=== PATIENT | female | born 1945 | race Caucasian/White ===

== ENCOUNTER 2017-10-16 13:20 | Emergency (ER) | payer MEDICARE ==
--- NOTE | 2017-10-16 14:51 | ED PDOC ---
Arrival/HPI - General Time Seen by Provider: 10/16/17 13:24 Historian: Patient, Family (son) - History of Present Illness Narrative History of Present Illness (Text): 10/16/17 14:42 A 72 year old female, whose past medical history includes hemorroids, prolapsed bladder (mesh placed August 2011, evaluated every year), presents to the emergency department complaining of difficulty urinating since 11:00 today. Only urinating a little at a time and feels pain that is radiating to the R flank. She notes also experiencing constipation (which patient believes may be caused by her hemorrhoids but is uncertain). Also with nausea. Patient denies any vomiting, diarrhea, or any other complaints at this time. Also, patient mentions she takes no pain medications. Past Medical History - Provider Review Nursing Documentation Reviewed: Yes Family/Social History - Physician Review Nursing Documentation Reviewed: Yes Family/Social History: No Known Family HX Allergies/Home Meds Allergies/Adverse Reactions: Allergies Penicillins Allergy (Verified 10/16/17 14:59) RASH polyethylene glycol 3350 [From Miralax] Allergy (Verified 10/16/17 14:59) RASH Home Medications: Home Meds Medication Instructions Recorded Confirmed Diltiazem HCl [Cartia Xt] 180 mg PO DAILY 10/16/17 10/16/17 Review of Systems - Physician Review All systems were reviewed & negative as marked: Yes - Review of Systems Gastrointestinal: Constipation, Nausea. absent: Diarrhea, Vomiting Genitourinary Female: Urine Output Changes (difficulty urinating) Musculoskeletal: Back Pain (right-side back pain) Physical Exam - Physical Exam Narrative Physical Exam (Text): Constitutional: No acute distress. Head: Normocephalic. Atraumatic. Eyes: PERRL. ENT: Moist mucous membranes. Neck: Supple. Cardiovascular: Regular rate. Chest: No tenderness. Respiratory: Clear to auscultation bilaterally. GI: Soft. Nontender. Distended. Back: No CVA tenderness. Musculoskeletal: No tenderness or swelling of extremities. Skin: No rash. Neurologic: Alert, no focal deficit. Rectal: Multiple hemorrhoids. No active bleeding. Nonthrombosed. Vital Signs Reviewed: Yes Vital Signs Temp Pulse Resp BP Pulse Ox 10/16/17 14:40 98.8 F 56 L 18 98 10/16/17 14:32 100.3 F H 96 H 18 123/66 95 Temperature: Afebrile Blood Pressure: Normal Pulse: Regular Respiratory Rate: Normal Appearance: Positive for: Well-Appearing, Non-Toxic, Comfortable Pain Distress: None Mental Status: Positive for: Alert and Oriented X 3 Medical Decision Making ED Course and Treatment: 10/16/17 14:46 Impression: 72 year old female with difficulty urinating and flank pain. Plan: -- Abd/Pelvis CT -- Labs -- Urine Culture -- Urinalysis -- Reassess and disposition Progress Notes: CT abdomen/pelvis IMPRESSION: Underdistended bladder with irregular wall thickening which may be related to underdistention. Bilateral ureteral enhancement which may be related to bilateral ascending urinary tract infections. Correlate clinically. Additional findings as above. Patient wishes to go home. First dose antibiotic given here, continue at home, instructed to return to Emergency department for worsening pain, fever, dyspnea , vomiting. - Lab Interpretations Lab Results: 10/16/17 15:47 10/16/17 15:47 Lab Results 10/16/17 16:48: Blood Type Pending, Antibody Screen Pending, BBK History Checked No verified bt 10/16/17 15:47: Urine Color Yellow, Urine Appearance Slight-cloudy, Urine pH 7.0 , Ur Specific [place] <= 1.005, Urine Protein 100 H, Urine Glucose (UA) Negative , Urine Ketones Negative, Urine Blood Large H, Urine Nitrate Positive H, Urine Bilirubin Negative, Urine Urobilinogen 0.2, Ur Leukocyte Esterase Large H, Urine RBC 25 - 30, Urine WBC 15 - 20, Ur Epithelial Cells Many, Amorphous Sediment Moderate 10/16/17 15:47: PT 12.7 H, INR 1.11 H, APTT 29.4 10/16/17 15:47: WBC 16.3 H, RBC 4.36, Hgb 13.0, Hct 38.3, MCV 87.8, MCH 29.8, MCHC 33.9, RDW 13.7, Plt Count 240, MPV 9.7, Gran % 81.1 H, Lymph % (Auto) 7.6 L , Adams % (Auto) 11.2 H, Eos % (Auto) 0.0 L, Baso % (Auto) 0.1, Gran # 13.20 H, Lymph # (Auto) 1.2, Adams # (Auto) 1.8 H, Eos # (Auto) 0.0, Baso # (Auto) 0.01 10/16/17 15:47: Sodium 138, Potassium 3.8, Chloride 100, Carbon Dioxide 28, Anion Gap 14, BUN 17, Creatinine 0.8, Est GFR ( Amer) > 60, Est GFR (Non- Af Amer) > 60, Random Glucose 119 H, Calcium 9.0, Total Bilirubin 1.7 H, AST 35 , ALT 23, Alkaline Phosphatase 77, Total Protein 7.3, Albumin 3.9, Globulin 3.3 , Albumin/Globulin Ratio 1.2, Lipase 31 - RAD Interpretation Radiology Orders: 10/16/17 14:48 ABD & PELVIS IV CONTRAST ONLY [CT] Stat - Medication Orders Current Medication Orders: Levofloxacin (Levaquin) 750 mg PO STAT STA PRN Reason: Protocol Stop: 10/16/17 17:44 - Scribe Statement The provider has reviewed the documentation as recorded by the Rhona Vasquez Provider Scribe Attestation: All medical record entries made by the Scribe were at my direction and personally dictated by me. I have reviewed the chart and agree that the record accurately reflects my personal performance of the history, physical exam, medical decision making, and the department course for this patient. I have also personally directed, reviewed, and agree with the discharge instructions and disposition. Disposition/Present on Arrival - Present on Arrival Any Indicators Present on Arrival: No - Disposition Have Diagnosis and Disposition been Completed?: Yes Diagnosis: Pyelonephritis Disposition: HOME/ ROUTINE Disposition Time: 17:47 Patient Plan: Discharge Condition: STABLE Discharge Instructions (ExitCare): Kidney Infection (DC) Prescriptions: Levofloxacin [Levaquin] 1 tab PO DAILY #10 tablet Referrals: Tatianna Duenas MD [Family Provider] - Follow up with primary
[2017-10-16 15:02] VITALS: TEMP 98.8; BMI 27.4
[2017-10-16 16:02] LABS: BASO # 0.01 K/mm3 (0.0-2.0); BASO % 0.1 % (0.0-3.0); GRAN # 13.2 (1.4-6.5); GRAN % 81.1 % (50.0-68.0); LYMPH # 1.2 (1.2-3.4); LYMPH % 7.6 % (22.0-35.0); MEAN CELL VOLUME 87.8 fl (80.0-105.0); MEAN CORPUSCULAR HEMOGLOBIN 29.8 pg (25.0-35.0); MEAN CORPUSCULAR HGB CONC 33.9 g/dl (31.0-37.0); MEAN PLATELET VOLUME 9.7 fl (7.0-11.0); MONO # 1.8 (0.1-0.6); MONO % 11.2 % (1.0-6.0); RBC 4.36 10^6/uL (3.5-6.1); RED CELL DISTRIBUTION WIDTH 13.7 % (11.5-14.5); WHITE BLOOD COUNT 16.3 10^3/ul (4.5-11.0)
[2017-10-16 16:03] LABS: URINE BILIRUBIN NEGATIVE (NEGATIVE); URINE BLOOD LARGE (NEGATIVE); URINE GLUCOSE (UA) NEGATIVE (NEGATIVE); URINE LEUKOCYTE ESTERASE LARGE Leu/uL (NEGATIVE); URINE PROTEIN 100 mg/dL (<30 mg/dL); URINE UROBILINOGEN 0.2 E.U./dL (<1 E.U./dL)
[2017-10-16 16:07] LABS: ALB/GLOB RATIO 1.2 (1.1-1.8); ALBUMIN 3.9 g/dL (3.0-4.8); ALT/SGPT 23 U/L (7-56); AST/SGOT 35 U/L (14-36); BLOOD UREA NITROGEN 17 mg/dL (7-21); GFR AFRICAN-AMERICAN > 60; GFR NON-AFRICAN AMERICAN > 60; LIPASE 31 U/L (23-300)
[2017-10-16 16:13] LABS: INR 1.11 (0.93-1.08); PROTHROMBIN TIME 12.7 SECONDS (9.4-12.5)
[2017-10-16 16:14] LABS: PARTIAL THROMBOPLASTIN TIME 29.4 Seconds (25.1-36.5)
[2017-10-16 16:15] LABS: URINE APPEARANCE SLIGHT-CLOUDY (CLEAR); URINE COLOR YELLOW (YELLOW)
[2017-10-16] MEDS ORDERED: Iohexol 350 MG/100 ML VIAL ONE (16:17)
[2017-10-16 16:20] LABS: URINE AMORPHOUS SEDIMENT MODERATE; URINE EPITHELIAL CELLS MANY /hpf (0-5); URINE RBC 25 - 30 /hpf (0-2); URINE WBC 15 - 20 /hpf (0-6)
--- NOTE | 2017-10-16 17:40 | CT ---
PROCEDURE: CT Abdomen and Pelvis with contrast HISTORY: urinary retention, constipation COMPARISON: None. TECHNIQUE: Contrast dose: 100 mL Omnipaque 350 Radiation dose: Total exam DLP = 468.7 mGy-cm. This CT exam was performed using one or more of the following dose reduction techniques: Automated exposure control, adjustment of the mA and/or kV according to patient size, and/or use of iterative reconstruction technique. FINDINGS: LOWER THORAX: Unremarkable. LIVER: Multiple hepatic cysts. No gross lesion or ductal dilatation. GALLBLADDER AND BILE DUCTS: Minimal cholelithiasis without gallbladder wall thickening/ edema or pericholecystic fluid. PANCREAS: Unremarkable. No gross lesion or ductal dilatation. SPLEEN: Unremarkable. ADRENALS: Unremarkable. No mass. KIDNEYS AND URETERS: Bilateral urothelial enhancement. No hydronephrosis. No solid mass. VASCULATURE: Unremarkable. No aortic aneurysm. BOWEL: Unremarkable. No obstruction. No gross mural thickening. APPENDIX: Normal appendix. PERITONEUM: Unremarkable. No free fluid. No free air. LYMPH NODES: Unremarkable. No enlarged lymph nodes. BLADDER: Underdistended bladder limits evaluation for wall thickening. REPRODUCTIVE: Unremarkable. BONES: No acute fracture. Degenerative changes. OTHER FINDINGS: None. IMPRESSION: Underdistended bladder with irregular wall thickening which may be related to underdistention. Bilateral ureteral enhancement which may be related to bilateral ascending urinary tract infections. Correlate clinically. Additional findings as above.
[2017-10-16] MEDS ORDERED: levoFLOXacin 750 MG TAB PO STA (17:43)
[2017-10-16 17:56] VITALS: O2SAT 96
[2017-10-16 18:06] VITALS: BP 118/65; PULSE 90; RESP 18
== END 2017-10-16 18:06 | disposition home or self-care (01) ==
LOC: EDSEX → MERGE 13:20 → ED 13:20
DX: N12 Tubulo-interstitial nephritis, not specified as acute or chronic (principal)
CPT/HCPCS: 74177; 80053; 81001; 83690; 85025; 85610; 85730; 86850; 86900; 87086; 99285; Q9967